=== PATIENT | male | born 1945 | race Caucasian/White ===

== ENCOUNTER 2016-07-22 09:21 | Day surgery (SDC) | payer MEDICARE, BC ==
[~2016-07-22 09:21] MED LIST: Sodium Chloride 0.9% 1,000 ML IV SCH
[2016-07-22] MEDS ORDERED: Sodium Chloride 0.9% 1,000 ML IV SCH (10:30)
[2016-07-22] MEDS ORDERED: ceFAZolin 2 GM in Sodium Chloride 0.9% 50 ML IV ONE (11:30)
[2016-07-22] MEDS ORDERED: Propofol 200 MG/20 ML SDV ONE (11:31)
[2016-07-22] MEDS ORDERED: fentaNYL 100 MCG/2 ML SDV ONE (11:31)
[2016-07-22] MEDS ORDERED: Midazolam 1 MG/ML 2 ML SDV ONE (11:31)
[2016-07-22 12:58] VITALS: BP 116/66
--- NOTE | 2016-07-22 20:54 | OR ---
DATE OF PROCEDURE: 07/22/2016 PROCEDURE: Colonoscopy. FINDINGS: 1. Sigmoid colon polyp, 5 mm, completely removed using cold biopsy forceps. 2. Diverticulosis, mild. COMPLICATIONS: None. MOTION PICTURE NARRATOR: None. ANESTHESIA: MAC. PREOPERATIVE DIAGNOSIS: History of colon polyps. POSTOPERATIVE DIAGNOSIS: History of colon polyps. INDICATIONS: Risks, benefits, alternatives, and limitations including, but not limited to infection, bleeding, and perforation were explained to the patient and he wished to proceed. PROCEDURE IN DETAIL: The patient was placed in the left lateral decubitus position. Digital exam was performed without abnormality. The scope was introduced and advanced atraumatically to the ileocecal valve. The scope was brought back to the ascending, transverse, descending colon, and retroflexed. No evidence of old or new blood. The small polyp was identified and completely removed as described above. The diverticulosis would be described as very mild and limited in sigmoid colon. No abnormalities noted on retroflexion. The patient tolerated the procedure well. Joni Casas MD /[id number]
== END 2016-07-22 13:05 | disposition home or self-care (01) ==
LOC: JP.SDS 09:21
PROVIDERS: ATTEND Surgery
DX: Z12.11 Encounter for screening for malignant neoplasm of colon (principal); K63.5 Polyp of colon; K57.30 Diverticulosis of large intestine without perforation or abscess without bleeding; Z88.8 Allergy status to other drugs, medicaments and biological substances; J44.9 Chronic obstructive pulmonary disease, unspecified; Z95.1 Presence of aortocoronary bypass graft; E78.5 Hyperlipidemia, unspecified
CPT/HCPCS: 45380; 88305; J0690; J2250; J2704; J3010; J7040; J7050

== ENCOUNTER 2016-09-29 18:17 | Observation (INO) | payer MEDICARE, BC ==
[2016-09-29] MEDS ORDERED: Diltiazem 25 MG/5 ML SDV IVPUSH ONE ×2 (18:42→20:12)
[2016-09-29] MEDS ORDERED: Sodium Chloride 0.9% 1,000 ML IV SCH ×3 (18:45→22:24)
[2016-09-29] MEDS ORDERED: Diltiazem 100 MG in Sodium Chloride 0.9% 100 ML IV SCH (21:15)
--- NOTE | 2016-09-29 21:22 | EDM.PDOC ---
ED HPI GENERAL MEDICAL PROBLEM - General Chief Complaint: Cardiovascular Problem Stated Complaint: CHEST PRESSURE Time Seen by Provider: 09/29/16 18:35 Source of Information: Reports: Patient History Limitations: Reports: No Limitations - History of Present Illness INITIAL COMMENTS - FREE TEXT/NARRATIVE: History of present illness: [71-year-old male presenting with A. fib with rapid response that started about 3:00 this afternoon. He has a history of same. He is on warfarin. He usually just waits it home and waits it out and it was clear up in a few hours but this time it's persisted so he came in. He has a history of a cardiac bypass 12 years ago but has not seen a forensic nurse since. He is on oral diltiazem at home. He's having no chest pain or pressure with this lightheadedness or dizziness and otherwise feels fine. He's had no fevers or chills or sweats cough or cold symptoms of late no abdominal pain nausea vomiting constipation diarrhea dysuria] Review of systems: As per history of present illness and below otherwise all systems reviewed and negative. Past medical history: As per history of present illness and as reviewed below otherwise noncontributory. Surgical history: As per history of present illness and as reviewed below otherwise noncontributory. Social history: No reported history of drug or alcohol abuse. Family history: As per history of present illness and as reviewed below otherwise noncontributory. Physical exam: HEENT: Atraumatic, normocephalic, pupils reactive, negative for conjunctival pallor or scleral icterus, mucous membranes moist, throat clear, neck supple, nontender, trachea midline. Lungs: Clear to auscultation, breath sounds equal bilaterally, chest nontender. Heart: Irregular rate and rhythm without murmur Abdomen: Soft, nondistended, nontender. Negative for masses or hepatosplenomegaly. Negative for costovertebral tenderness. Pelvis: Stable nontender. Genitourinary: Deferred. Rectal: Deferred. Extremities: Atraumatic, negative for cords or calf pain. Neurovascular unremarkable. Neuro: Awake, alert, oriented. Cranial nerves II through XII unremarkable. Cerebellum unremarkable. Motor and sensory unremarkable throughout. Exam nonfocal. Diagnostics: [CBC and complete metabolic panel are unremarkable as INR is therapeutic] Therapeutics: [Diltiazem IV was given 10 mg his blood pressure dropped to 77 systolic. He's been here for 3 hours and we have been waiting to see if he would convert and I we have elected to admit him on an IV diltiazem drip] Impression: [A. fib with rapid response] Plan: [We'll be admitting him to the unit on a diltiazem drip Dr. Crandall is being contacted] Definitive disposition and diagnosis as appropriate pending reevaluation and review of above. - Related Data Allergies Allergy/AdvReac Type Severity Reaction Status Date / Time atorvastatin calcium Allergy Cannot Verified 03/10/15 00:47 [From Lipitor] Remember Home Meds: Home Meds Aspirin/Calcium Carbonate/Mag [Aspirin Buffered 325 mg Tab] 81 mg PO DAILY 05/02 [History] Budesonide/Formoterol [Symbicort 160-4.5 MCG] 2 puff INH BID 05/02/13 [History] Diclofenac Sodium [Voltaren] 75 mg PO DAILY 05/02/13 [History] [place]-3 Fatty Acids [[place]-3] 1,000 mg PO BID 05/02/13 [History] Simvastatin [Zocor] 40 mg PO BEDTIME 05/02/13 [History] Loratadine [Claritin] 10 mg PO DAILY 11/04/14 [History] Cholecalciferol (Vitamin D3) [Vitamin D3] 2,000 unit PO DAILY 03/10/15 [History] Acetaminophen [Acetaminophen Extra Strength] 1 - 2 tab PO Q6HR PRN 07/20/16 [ History] Warfarin Sodium [Coumadin] 7.5 mg PO ASDIRECTED 07/22/16 [History] Diltiazem HCl [Diltiazem ER] 1 tab PO DAILY 09/29/16 [History] Past Medical History HEENT History: Reports: Impaired Vision, Other (See Below) 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 Cardiovascular History: Reports: High Cholesterol, [place] Respiratory History: Reports: COPD Other Respiratory History: restrictive lung disease Gastrointestinal History: Reports: Colon Polyp Musculoskeletal History: Reports: Fracture, Osteoarthritis Other Musculoskeletal History: Fx pelvis Neurological History: Reports: Other (See Below) Other Neuro History: "stroke in eye" Oncologic (Cancer) History: Reports: Squamous Cell Carcinoma Dermatologic History: Reports: Benign Melanoma - Infectious Disease History Infectious Disease History: Reports: Chicken Pox, Measles, Mumps - Past Surgical History HEENT Surgical History: Reports: Oral Surgery, Other (See Below) Cardiovascular Surgical History: Reports: Carotid Endarterectomy, Coronary Artery Bypass Respiratory Surgical History: Reports: None GI Surgical History: Reports: Colonoscopy Musculoskeletal Surgical History: Reports: Joint Replacement, Knee Replacement Social & Family History - Tobacco Use Smoking Status *Q: Former Smoker Years of Tobacco use: 30 Packs/Tins Daily: 1 Used Tobacco, but Quit: Yes Month Tobacco Last Used: FEBRUARY Second Hand Smoke Exposure: No - Caffeine Use Caffeine Use: Reports: Coffee - Alcohol Use Days Per Week of Alcohol Use: 7 Number of Drinks Per Day: 1 Total Drinks Per Week: 7 - Recreational Drug Use Recreational Drug Use: No ED ROS GENERAL - Review of Systems Review Of Systems: ROS reveals no pertinent complaints other than HPI. ED EXAM, GENERAL - Physical Exam Exam: See Below Course - Vital Signs Last Recorded V/S: Last Vital Signs Temp 36.3 C 09/29/16 18:57 Pulse 140 H 09/29/16 20:25 Resp 16 09/29/16 18:58 BP 88/59 L 09/29/16 20:25 Pulse Ox 92 L 09/29/16 20:25 - Orders/Labs/Meds Orders: Active Orders 24 hr Category Date Time Status EKG Documentation Completion [RC] ASDIRECTED Care 09/29/16 19:33 Active Chest 1V Frontal [CR] Stat Exams 09/29/16 19:39 Taken TROPONIN I [CHEM] Stat Lab 09/29/16 21:22 Ordered Diltiazem [Cardizem] 100 mg Med 09/29/16 21:15 Active Sodium Chloride 0.9% [Normal Saline] 100 ml IV TITRATE Sodium Chloride 0.9% [Normal Saline] 1,000 ml Med 09/29/16 20:00 Active IV ASDIRECTED EKG 12 Lead [EK] Stat Ther 09/29/16 19:33 Ordered Medication Orders Sodium Chloride (Normal Saline) 1,000 mls @ 999 mls/hr IV ASDIRECTED TONY Diltiazem HCl 100 mg/ Sodium (Chloride) 100 mls @ 5 mls/hr IV TITRATE TONY; 5 MG /HR PRN Reason: Protocol Labs: Laboratory Tests 09/29/16 09/29/16 09/29/16 Range/Units 18:53 18:53 18:53 WBC 8.3 (4.5-11.0) K/uL RBC 4.62 (4.30-5.90) M/uL Hgb 14.9 (12.0-15.0) g/dL Hct 44.0 (40.0-54.0) % MCV 95 (80-98) fL MCH 32 H (27-31) pg MCHC 34 (32-36) % Plt Count 238 (150-400) K/uL Neut % (Auto) 55 (36-66) % Lymph % (Auto) 30 (24-44) % [place] % (Auto) 11 H (2-6) % Eos % (Auto) 3 (2-4) % Baso % (Auto) 1 (0-1) % PT 27.1 H (9.5-12.0) sec INR 2.44 H (0.80-1.20) Sodium 141 (140-148) mmol/L Potassium 4.7 (3.6-5.2) mmol/L Chloride 104 (100-108) mmol/L Carbon Dioxide 30 (21-32) mmol/L Anion Gap 7.5 (5.0-14.0) mmol/L BUN 18 (7-18) mg/dL Creatinine 1.2 (0.8-1.3) mg/dL Est Cr Clr Drug Dosing 59.26 mL/min Estimated GFR (MDRD) 60 (>60) Glucose 96 (74-106) mg/dL Calcium 8.7 (8.5-10.1) mg/dL Total Bilirubin 0.4 (0.2-1.0) mg/dL AST 20 (15-37) U/L ALT 29 (12-78) U/L Alkaline Phosphatase 62 (46-116) U/L Total Protein 6.7 (6.4-8.2) g/dL Albumin 3.3 L (3.4-5.0) g/dL Globulin 3.4 (2.3-3.5) g/dL Albumin/Globulin Ratio 1.0 L (1.2-2.2) Meds: Medications Generic Name Dose Route Start Last Admin Trade Name Freq PRN Reason Stop Dose Admin Sodium Chloride 1,000 mls @ 999 mls/hr 09/29/16 20:00 Normal Saline IV ASDIRECTED TONY Diltiazem HCl 100 mg/ Sodium 100 mls @ 5 mls/hr 09/29/16 21:15 Chloride IV TITRATE TONY Protocol 5 MG/HR Discontinued Medications Generic Name Dose Route Start Last Admin Trade Name Steph PRN Reason Stop Dose Admin Diltiazem HCl 10 mg 09/29/16 18:42 09/29/16 19:01 Diltiazem IVPUSH 09/29/16 18:43 10 mg ONETIME ONE Administration Diltiazem HCl 10 mg 09/29/16 20:12 Diltiazem IVPUSH 09/29/16 20:13 ONETIME ONE Sodium Chloride 1,000 mls @ 250 mls/hr 09/29/16 18:45 09/29/16 19:03 Normal Saline IV 250 mls/hr ASDIRECTED TONY Administration Departure - Departure Time of Disposition: 21:25 Disposition: Admitted As Inpatient 65 Condition: Good Clinical Impression: Atrial fibrillation with rapid ventricular response Forms: ED Department Discharge - My Orders Last 24 Hours: My Active Orders 09/29/16 19:33 EKG Documentation Completion [RC] ASDIRECTED EKG 12 Lead [EK] Stat 09/29/16 19:39 Chest 1V Frontal [CR] Stat 09/29/16 20:00 Sodium Chloride 0.9% [Normal Saline] 1,000 ml IV ASDIRECTED 09/29/16 21:15 Diltiazem [Cardizem] 100 mg Sodium Chloride 0.9% [Normal Saline] 100 ml IV TITRATE 09/29/16 21:22 TROPONIN I [CHEM] Stat - Assessment/Plan Last 24 Hours: My Active Orders 09/29/16 19:33 EKG Documentation Completion [RC] ASDIRECTED EKG 12 Lead [EK] Stat 09/29/16 19:39 Chest 1V Frontal [CR] Stat 09/29/16 20:00 Sodium Chloride 0.9% [Normal Saline] 1,000 ml IV ASDIRECTED 09/29/16 21:15 Diltiazem [Cardizem] 100 mg Sodium Chloride 0.9% [Normal Saline] 100 ml IV TITRATE 09/29/16 21:22 TROPONIN I [CHEM] Stat
--- NOTE | 2016-09-29 22:20 | PCM.HP ---
H&P History of Present Illness - General Date of Service: 09/29/16 Admit Problem/Dx: Admission Diagnosis/Problem Admission Diagnosis/Problem Rapid atrial fibrillation Source of Information: Patient, Family, Provider History Limitations: Reports: No Limitations - History of Present Illness Initial Comments - Free Text/Narative: Atif presents to the emergency room tonight with palpitations that started at approximately 3 PM today. He reports mild fatigue with exertion but has not had any chest pain or shortness of breath. He does not feel dyspnea with exertion. No dizziness or lightheadedness. He has not had a cough, fevers or chills. No recent abdominal pain, nausea or diarrhea. No lower extremity edema. He has felt well recently with no concerns. He does have a history of similar episodes with 2 or 3 over the past 2 years. They have previously responded to time more in one instance short duration of medication administration. Has been on warfarin and recent values have all been therapeutic. No recent tremor or weight loss to suggest hyperthyroid state. No unusual activities prior to onset of symptoms this afternoon. He drinks 2 cups of coffee per day at most and this is a chronic level of consumption. No alcohol or street drug use. On arrival to the emergency room he has a heart rate of 140-150 range. Vital signs are otherwise stable. Laboratory studies are reassuring. Diltiazem bolus caused some hypotension. Diltiazem infusion started after blood pressures improved. He will be admitted for further management and possible cardioversion. - Related Data Allergies/Adverse Reactions: Allergies Allergy/AdvReac Type Severity Reaction Status Date / Time atorvastatin calcium Allergy Cannot Verified 03/10/15 00:47 [From Lipitor] Remember Home Medications: Home Meds Aspirin/Calcium Carbonate/Mag [Aspirin Buffered 325 mg Tab] 81 mg PO DAILY 05/02 [History] Budesonide/Formoterol [Symbicort 160-4.5 MCG] 2 puff INH BID 05/02/13 [History] Diclofenac Sodium [Voltaren] 75 mg PO DAILY 05/02/13 [History] [place]-3 Fatty Acids [[place]-3] 1,000 mg PO BID 05/02/13 [History] Simvastatin [Zocor] 40 mg PO BEDTIME 05/02/13 [History] Loratadine [Claritin] 10 mg PO DAILY 11/04/14 [History] Cholecalciferol (Vitamin D3) [Vitamin D3] 2,000 unit PO DAILY 03/10/15 [History] Acetaminophen [Acetaminophen Extra Strength] 1 - 2 tab PO Q6HR PRN 07/20/16 [ History] Warfarin Sodium [Coumadin] 7.5 mg PO ASDIRECTED 07/22/16 [History] Diltiazem HCl [Diltiazem ER] 120 mg PO DAILY 09/29/16 [History] Past Medical History HEENT History: Reports: Impaired Vision, Other (See Below) 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 Cardiovascular History: Reports: High Cholesterol, [place] Respiratory History: Reports: COPD Other Respiratory History: restrictive lung disease Gastrointestinal History: Reports: Colon Polyp Musculoskeletal History: Reports: Fracture, Osteoarthritis Other Musculoskeletal History: Fx pelvis Neurological History: Reports: Other (See Below) Other Neuro History: "stroke in eye" Oncologic (Cancer) History: Reports: Squamous Cell Carcinoma Dermatologic History: Reports: Benign Melanoma - Infectious Disease History Infectious Disease History: Reports: Chicken Pox, Measles, Mumps - Past Surgical History HEENT Surgical History: Reports: Oral Surgery, Other (See Below) Cardiovascular Surgical History: Reports: Carotid Endarterectomy, Coronary Artery Bypass Respiratory Surgical History: Reports: None GI Surgical History: Reports: Colonoscopy Musculoskeletal Surgical History: Reports: Joint Replacement, Knee Replacement Social & Family History - Family History Cardiac: Denies: CAD - Tobacco Use Smoking Status *Q: Former Smoker Years of Tobacco use: 30 Packs/Tins Daily: 1 Used Tobacco, but Quit: Yes Month Tobacco Last Used: FEBRUARY Second Hand Smoke Exposure: No - Caffeine Use Caffeine Use: Reports: Coffee - Alcohol Use Days Per Week of Alcohol Use: 7 Number of Drinks Per Day: 1 Total Drinks Per Week: 7 - Recreational Drug Use Recreational Drug Use: No H&P Review of Systems - Review of Systems: Review Of Systems: See Below Free Text/Narrative: A complete 12 point review of systems was obtained. Pertinent positives and negatives are noted in the history of present illness. All other systems were reviewed and were negative except as noted. Exam - Exam Exam: See Below - Vital Signs Vital Signs: Last Vital Signs Temp 36.3 C 09/29/16 18:57 Pulse 130 H 09/29/16 21:42 Resp 16 09/29/16 21:42 BP 122/75 09/29/16 21:42 Pulse Ox 93 L 09/29/16 21:42 Weight: 105.6 kg - Exam Quality Assessment: No: Supplemental Oxygen General: Alert, Oriented, Cooperative. No: Mild Distress HEENT: Conjunctiva Clear, Mucosa Moist & Sharpes. No: Scleral Icterus Neck: Supple, Trachea Midline. No: Lymphadenopathy, JVD Lungs: Clear to Auscultation, Normal Respiratory Effort Cardiovascular: Irregular Rhythm, Tachycardia GI/Abdominal Exam: Normal Bowel Sounds, Soft, Non-Tender, No Distention Back Exam: Normal Inspection, Full Range of Motion Extremities: Normal Inspection, No Pedal Edema. No: Increased Warmth Skin: Warm, Dry, Intact Neuro Extensive - Mental Status: Alert, Oriented x3, Nl Response to Commands Neuro Extensive - Motor, Sensory, Reflexes: CN II-XII Intact. No: Dysarthria, Abnormal Motor, Tremor Psychiatric: Alert, Normal Affect - Patient Data Lab Results Last 24 hrs: Laboratory Results - last 24 hr 09/29/16 09/29/16 09/29/16 Range/Units 18:53 18:53 18:53 WBC 8.3 (4.5-11.0) K/uL RBC 4.62 (4.30-5.90) M/uL Hgb 14.9 (12.0-15.0) g/dL Hct 44.0 (40.0-54.0) % MCV 95 (80-98) fL MCH 32 H (27-31) pg MCHC 34 (32-36) % Plt Count 238 (150-400) K/uL Neut % (Auto) 55 (36-66) % Lymph % (Auto) 30 (24-44) % [place] % (Auto) 11 H (2-6) % Eos % (Auto) 3 (2-4) % Baso % (Auto) 1 (0-1) % PT 27.1 H (9.5-12.0) sec INR 2.44 H (0.80-1.20) Sodium 141 (140-148) mmol/L Potassium 4.7 (3.6-5.2) mmol/L Chloride 104 (100-108) mmol/L Carbon Dioxide 30 (21-32) mmol/L Anion Gap 7.5 (5.0-14.0) mmol/L BUN 18 (7-18) mg/dL Creatinine 1.2 (0.8-1.3) mg/dL Est Cr Clr Drug Dosing 59.26 mL/min Estimated GFR (MDRD) 60 (>60) Glucose 96 (74-106) mg/dL Calcium 8.7 (8.5-10.1) mg/dL Magnesium (1.8-2.4) mg/dL Total Bilirubin 0.4 (0.2-1.0) mg/dL AST 20 (15-37) U/L ALT 29 (12-78) U/L Alkaline Phosphatase 62 (46-116) U/L Troponin I (0.000-0.056) ng/mL Total Protein 6.7 (6.4-8.2) g/dL Albumin 3.3 L (3.4-5.0) g/dL Globulin 3.4 (2.3-3.5) g/dL Albumin/Globulin Ratio 1.0 L (1.2-2.2) 09/29/16 09/29/16 Range/Units 21:30 21:47 WBC (4.5-11.0) K/uL RBC (4.30-5.90) M/uL Hgb (12.0-15.0) g/dL Hct (40.0-54.0) % MCV (80-98) fL MCH (27-31) pg MCHC (32-36) % Plt Count (150-400) K/uL Neut % (Auto) (36-66) % Lymph % (Auto) (24-44) % [place] % (Auto) (2-6) % Eos % (Auto) (2-4) % Baso % (Auto) (0-1) % PT (9.5-12.0) sec INR (0.80-1.20) Sodium (140-148) mmol/L Potassium (3.6-5.2) mmol/L Chloride (100-108) mmol/L Carbon Dioxide (21-32) mmol/L Anion Gap (5.0-14.0) mmol/L BUN (7-18) mg/dL Creatinine (0.8-1.3) mg/dL Est Cr Clr Drug Dosing mL/min Estimated GFR (MDRD) (>60) Glucose (74-106) mg/dL Calcium (8.5-10.1) mg/dL Magnesium 1.9 (1.8-2.4) mg/dL Total Bilirubin (0.2-1.0) mg/dL AST (15-37) U/L ALT (12-78) U/L Alkaline Phosphatase (46-116) U/L Troponin I < 0.017 (0.000-0.056) ng/mL Total Protein (6.4-8.2) g/dL Albumin (3.4-5.0) g/dL Globulin (2.3-3.5) g/dL Albumin/Globulin Ratio (1.2-2.2) Result Diagrams: 09/29/16 18:53 09/29/16 18:53 Imaging Impressions Last 24 hrs: Chest x-ray - images personally reviewed - heart size is normal, no evidence for infiltrate, congestive heart failure or mass. Elevated left hemidiaphragm consistent with hiatal hernia EKG INTERPRETATION EKG Date: 09/29/16 Rhythm: A-Fib Rate (Beats/Min): 144 [place]: Normal P-Wave: Variable QRS: Normal ST-T: Normal QT: Normal *Q Meaningful Use (ADM) - VTE *Q VTE Criteria *Q: - VTE Risk Assess *Q Each Risk Factor Represents 1 Point: Obesity (BMI greater than 30) Total Score 1 Point Risk Factors: 1 Each Risk Factor Represents 2 Points: Age 60 - 74 Years Total Score 2 Point Risk Factors: 2 Each Risk Factor Represents 3 Points: None Total Score 3 Point Risk Factors: 0 Each Risk Factor Represents 5 Points: None Total Score 5 Point Risk Factors: 0 Venous Thromboembolism Risk Factor Score *Q: 3 - Stroke *Q Stroke Criteria *Q: - AMI *Q AMI Criteria *Q: - Problem List (1) Atrial fibrillation with rapid ventricular response SNOMED Code(s): 696168749346577 ICD Code: I48.91 - UNSPECIFIED ATRIAL FIBRILLATION Status: Acute Current Visit: Yes Problem List Initiated/Reviewed/Updated: Yes Orders Last 24hrs: Active Orders 24 hr Category Date Time Status Patient Status Manage Transfer [TRANSFER] Routine ADT 09/29/16 22:10 Ordered EKG Documentation Completion [RC] ASDIRECTED Care 09/29/16 19:33 Active Chest 1V Frontal [CR] Stat Exams 09/29/16 19:39 Taken Diltiazem [Cardizem] 100 mg Med 09/29/16 21:15 Active Sodium Chloride 0.9% [Normal Saline] 100 ml IV TITRATE Sodium Chloride 0.9% [Normal Saline] 1,000 ml Med 09/29/16 20:00 Active IV ASDIRECTED Resuscitation Status Routine Resus Stat 09/29/16 22:11 Ordered EKG 12 Lead [EK] Stat Ther 09/29/16 19:33 Ordered Medication Orders Sodium Chloride (Normal Saline) 1,000 mls @ 999 mls/hr IV ASDIRECTED TONY Last Admin: 09/29/16 21:38 Dose: 999 mls/hr Diltiazem HCl 100 mg/ Sodium (Chloride) 100 mls @ 5 mls/hr IV TITRATE TONY; 5 MG /HR PRN Reason: Protocol Last Admin: 09/29/16 21:40 Dose: 5 mg/hr, 5 mls/hr Assessment/Plan Comment:: Assessment and plan - Atrial fibrillation with rapid ventricular response - no obvious cause for the rapid rate today. No evidence for infection. No symptoms of sleep apnea or hyperthyroidism. Minimal caffeine use and no alcohol or illicit drug use. No ischemic symptoms. Laboratory studies unremarkable including electrolytes. History of similar episodes. INR has been therapeutic on recent checks. -Diltiazem infusion overnight -Consider addition of beta alina -As her cardioversion in the morning still in atrial fibrillation -Continue anticoagulation -Outpatient echocardiogram -Outpatient cardiology referral Maintenance issues - - DVT prophylaxis - warfarin - GI prophylaxis - not indicated - Nutrition - nothing by mouth after midnight in case we cardiovert in the morning - Phan catheter - not indicated CODE STATUS - full code Admission justification - patient will be referred observation for management of atrial fibrillation including diltiazem infusion and possibly cardioversion Disposition - anticipate discharge to home tomorrow Primary care physician - Dr. Rodrigo Crandall M.D.
[2016-09-29] MEDS ORDERED: Acetaminophen 325 MG Tab PO PRN (22:24)
[2016-09-29] MEDS ORDERED: Ondansetron 4 MG Tab.DIS PO PRN (22:24)
[2016-09-29] MEDS: Diltiazem 100 MG in Sodium Chloride 0.9% 100 ML IV SCH (22:32)
[2016-09-30] MEDS ORDERED: Diltiazem 25 MG/5 ML SDV IVPUSH ONE (00:27)
[2016-09-30] MEDS: Diltiazem 100 MG in Sodium Chloride 0.9% 100 ML IV SCH (07:07)
[2016-09-30] MEDS ORDERED: Formoterol/Mometasone 200-5 MCG 8.8 GM Inhaler IH SCH ×2 (08:00→09:00)
[2016-09-30] MEDS ORDERED: Diltiazem 120 MG Cap.CD (PTOM) PO ONE (08:30)
[2016-09-30] MEDS ORDERED: Non-Formulary Medication 1 Each (Aspirin/Calcium Carbonate/Mag [Aspirin Buffered 325 Mg Ta PO SCH ×2 (09:00)
[2016-09-30] MEDS ORDERED: DICLOFENAC SODIUM 75 MG PO SCH (09:00)
[2016-09-30] MEDS ORDERED: Aspirin 81 MG Tab.EC PO SCH (09:00)
[2016-09-30] MEDS ORDERED: SYMBICORT INH SCH (09:00)
[2016-09-30] MEDS ORDERED: LORATADINE 10 MG PO SCH (09:00)
--- NOTE | 2016-09-30 09:02 | CR ---
Chest 1V Frontal HISTORY: Atrial fibrillation COMPARISON: 03/10/2015. FINDINGS: Prior median sternotomy. Stable mild cardiomegaly. Linear atelectatic change or scarring a djacent to the elevated left hemidiaphragm unchanged from previous study. No new acute infiltrates. No acute congestive change.
[2016-09-30 12:25] VITALS: BP 130/68
--- NOTE | 2016-09-30 12:52 | PCM.DCSUM1 ---
Discharge Summary - Hospital Course Brief History: 71 -year-old male with history of paroxysmal atrial fibrillation on warfarin therapy who presented with palpitations and was admitted for management of atrial fibrillation with rapid ventricular response. - Discharge Data Discharge Date: 09/30/16 Discharge Disposition: Home, Self-Care 01 Condition: Good - Discharge Diagnosis/Problem(s) (1) Atrial fibrillation with rapid ventricular response SNOMED Code(s): 636960572516644 ICD Code: I48.91 - UNSPECIFIED ATRIAL FIBRILLATION Status: Acute Current Visit: Yes Problem Details: Paroxysmal atrial fibrillation with rapid ventricular response - Patient Summary/Data Labs Pending at D/C: formal read of the echocardiogram Hospital Course: Atif presented to the emergency room with palpitations. Workup in the emergency room revealed atrial fibrillation with rapid ventricular response and heart rates up to 150s. Laboratory workup was unremarkable including kidney function, electrolytes and his troponin was normal. EKG did not show any ischemic changes. He was given a bolus of diltiazem in the emergency room which did not help his rate much and did drop his pressures. At this point he was started on a diltiazem infusion and this was titrated up to 10 mg shortly after admission to the intensive care unit. Overnight his heart rate improved and we did not need to go past 10 mg. Morning after admission he converted to a normal sinus rhythm and has remained there since that time. Blood pressures have all been stable on the 10 mg per hour infusion. The morning after admission we transitioned him to oral diltiazem after he converted to sinus rhythm. The diltiazem infusion was then stopped and he has remained in sinus rhythm with a normal heart rate since that time. we did complete an echocardiogram prior to discharge. The formal read is pending but from the images are viewed appears that he has some mild atrial enlargement but normal left ventricular size and function. Right ventricle is nondilated and functioned normally. He may have some mild septal hypokinesis but the remainder of the wall motion seems normal. He had trace mitral regurgitation but otherwise is felt to be functioning normally and no significant stenosis or regurgitation. There is no pericardial effusion noted. Patient has had several episodes of atrial fibrillation and he is interested in a follow-up with cardiology discussion about risks and benefits and possibility of having an ablation. His coronary artery bypass was done at [facility] in [place] 12 years ago when he is interested in following up with the cardiology folks at [facility]. A follow-up appointment has been set up for him in [place] next week. I have discharged him with a prescription for 240 mg of diltiazem to be taken daily which is an increase from his previous dose of 120 mg. He will remain on warfarin and his INR has been therapeutic during recent checks and during the hospital stay. - Patient Instructions Diet: Heart Healthy Diet Activity: As Tolerated Driving: May Drive Today Showering/Bathing: May Shower Notify Provider of: Fever, Increased Pain, Nausea and/or Vomiting Other/Special Instructions: 1. You were in the hospital for management of paroxysmal atrial fibrillation with rapid ventricular response. Your heart has returned to a normal sinus rhythm with the use of diltiazem. I recommend that you increase your diltiazem to 240 mg and take this once daily. 2. Please continue taking your warfarin as previously prescribed. 3. Follow-up with [place] cardiology next at 10 AM. 4. Please seek medical attention if you have return of the palpitations, he developed sudden onset of shortness of breath or you develop chest pain. - Discharge Plan Prescriptions/Med Rec: Diltiazem HCl [Diltiazem 24Hr Cd] 240 mg PO DAILY #90 cap.er.24h Home Medications: Home Meds Aspirin/Calcium Carbonate/Mag [Aspirin Buffered 325 mg Tab] 81 mg PO DAILY 05/02 [History] Budesonide/Formoterol [Symbicort 160-4.5 MCG] 2 puff INH BID 05/02/13 [History] Diclofenac Sodium [Voltaren] 75 mg PO DAILY 05/02/13 [History] [place]-3 Fatty Acids [[place]-3] 1,000 mg PO BID 05/02/13 [History] Simvastatin [Zocor] 40 mg PO BEDTIME 05/02/13 [History] Loratadine [Claritin] 10 mg PO DAILY 11/04/14 [History] Cholecalciferol (Vitamin D3) [Vitamin D3] 2,000 unit PO DAILY 03/10/15 [History] Acetaminophen [Acetaminophen Extra Strength] 1 - 2 tab PO Q6HR PRN 07/20/16 [ History] Warfarin Sodium [Coumadin] 7.5 mg PO ASDIRECTED 07/22/16 [History] Diltiazem HCl [Diltiazem 24Hr Cd] 240 mg PO DAILY #90 cap.er.24h 09/30/16 [Rx] Patient Handouts: Diltiazem extended-release capsules or tablets, Atrial Fibrillation Referrals: Germán Wallace MD [Primary Care Provider] - (f/u if symptoms return ) - Discharge Summary/Plan Comment DC Time >30 min.: No (25) - Patient Data Vitals - Most Recent: Last Vital Signs Temp 36.8 C 09/30/16 12:00 Pulse 81 09/30/16 12:00 Resp 18 09/30/16 12:00 BP 130/68 09/30/16 12:00 Pulse Ox 94 L 09/30/16 07:52 Weight - Most Recent: 107.501 kg I&O - Last 24 hours: Intake & Output 09/29/16 09/30/16 09/30/16 22:59 06:59 14:59 Intake Total 9544 165 3692 Output Total 400 350 Balance 1000 -280 1536 Med Orders - Current: Current Medications Acetaminophen (Tylenol) 650 mg PO Q4H PRN PRN Reason: Pain (Mild 1-3)/fever Aspirin (Halfprin) 81 mg PO DAILY [facility] Last Admin: 09/30/16 08:49 Dose: 81 mg Diclofenac Sodium (Voltaren) 75 mg PO DAILY [facility] Last Admin: 09/30/16 08:50 Dose: 75 mg Sodium Chloride (Normal Saline) 1,000 mls @ 25 mls/hr IV ASDIRECTED [facility] Last Admin: 09/30/16 01:02 Dose: 25 mls/hr Loratadine (Claritin) 10 mg PO DAILY [facility] Last Admin: 09/30/16 08:48 Dose: 10 mg Ondansetron HCl (Zofran Odt) 4 mg PO Q6H PRN PRN Reason: Nausea able to take PO Simvastatin 40mg ( (Ptom)) 0 each PO BEDTIME TONY Symbicort 160/4.5mg (Inhaler (Ptom)) 0 each INH BIDRT [facility] Last Admin: 09/30/16 09:43 Dose: 2 each Discontinued Medications Diltiazem HCl (Diltiazem) 10 mg IVPUSH ONETIME ONE Stop: 09/29/16 18:43 Last Admin: 09/29/16 19:01 Dose: 10 mg Diltiazem HCl (Diltiazem) 10 mg IVPUSH ONETIME ONE Stop: 09/29/16 20:13 Last Admin: 09/30/16 06:02 Dose: Not Given Diltiazem HCl (Diltiazem) 5 mg IVPUSH ONETIME ONE Stop: 09/30/16 00:28 Last Admin: 09/30/16 06:03 Dose: Not Given Diltiazem HCl (Cardizem Cd) 240 mg PO ONETIME ONE Stop: 09/30/16 08:31 Last Admin: 09/30/16 08:47 Dose: 240 mg Sodium Chloride (Normal Saline) 1,000 mls @ 250 mls/hr IV ASDIRECTED TONY Last Admin: 09/29/16 19:03 Dose: 250 mls/hr Sodium Chloride (Normal Saline) 1,000 mls @ 999 mls/hr IV ASDIRECTED TONY Last Admin: 09/29/16 21:38 Dose: 999 mls/hr Diltiazem HCl 100 mg/ Sodium (Chloride) 100 mls @ 5 mls/hr IV TITRATE TONY; 5 MG /HR PRN Reason: Protocol Last Admin: 09/29/16 21:40 Dose: 5 mg/hr, 5 mls/hr Diltiazem HCl 100 mg/ Sodium (Chloride) 100 mls @ 5 mls/hr IV TITRATE TONY; 5 MG /HR PRN Reason: Protocol Last Admin: 09/30/16 07:07 Dose: 10 mg/hr, 10 mls/hr Simvastatin (Zocor) 40 mg PO BEDTIME TONY *Q Meaningful Use (DIS) - VTE *Q VTE Criteria *Q: - Stroke *Q Stroke Criteria *Q: - AMI *Q AMI Criteria *Q:
[2016-09-30] MEDS ORDERED: SIMVASTATIN 40 MG PO SCH (21:00)
[2016-09-30] MEDS ORDERED: Simvastatin 20 MG Tab PO SCH (21:00)
== END 2016-09-30 14:50 | disposition home or self-care (01) ==
LOC: JP.ED 18:17 → JP.ICU 22:10 → UNDODISOB 23:20
PROVIDERS: ADMIT Internal Medicine; ATTEND Internal Medicine
DX: I48.91 Unspecified atrial fibrillation (principal); E78.00 Pure hypercholesterolemia, unspecified; J44.9 Chronic obstructive pulmonary disease, unspecified; Z79.82 Long term (current) use of aspirin; Z79.01 Long term (current) use of anticoagulants; Z79.899 Other long term (current) drug therapy; Z88.8 Allergy status to other drugs, medicaments and biological substances; Z95.1 Presence of aortocoronary bypass graft; Z98.890 Other specified postprocedural states; Z96.659 Presence of unspecified artificial knee joint; Z87.891 Personal history of nicotine dependence
CPT/HCPCS: 36415; 71010; 80053; 83735; 84484; 85025; 85610; 93005; 93306; 96361; 96366; 96374; 99285; A9270; G0378; J7030; J7040; 93010; 96365; 96375; 99217; 99220; J3490

== ENCOUNTER 2016-11-11 19:07 | Emergency (ER) | payer MEDICARE, BC ==
[2016-11-11] MEDS ORDERED: LORazepam 0.5 MG Tab PO ONE (20:44)
--- NOTE | 2016-11-11 20:46 | EDM.PDOC ---
ED HPI GENERAL MEDICAL PROBLEM - General Chief Complaint: Cardiovascular Problem Stated Complaint: BLOOD PRESSURE HIGH Time Seen by Provider: 11/11/16 20:36 Source of Information: Reports: Patient, Family, RN Notes Reviewed History Limitations: Reports: No Limitations - History of Present Illness INITIAL COMMENTS - FREE TEXT/NARRATIVE: 71-year-old gentleman presents emergency department day with concerns about blood pressure, he does have a wrist blood pressure machine each has shown systolic levels well above 200 he is very concerned about this and would like to be evaluated, he complains of slight headache otherwise no other symptoms - Related Data Allergies Allergy/AdvReac Type Severity Reaction Status Date / Time atorvastatin calcium Allergy Cannot Verified 11/11/16 19:51 [From Lipitor] Remember Home Meds: Home Meds Aspirin/Calcium Carbonate/Mag [Aspirin Buffered 325 mg Tab] 81 mg PO DAILY 05/02 [History] Budesonide/Formoterol [Symbicort 160-4.5 MCG] 2 puff INH BID 05/02/13 [History] Diclofenac Sodium [Voltaren] 75 mg PO DAILY 05/02/13 [History] [place]-3 Fatty Acids [[place]-3] 1,000 mg PO BID 05/02/13 [History] Simvastatin [Zocor] 40 mg PO BEDTIME 05/02/13 [History] Loratadine [Claritin] 10 mg PO DAILY 11/04/14 [History] Cholecalciferol (Vitamin D3) [Vitamin D3] 2,000 unit PO DAILY 03/10/15 [History] Acetaminophen [Acetaminophen Extra Strength] 1 - 2 tab PO Q6HR PRN 07/20/16 [ History] Warfarin Sodium [Coumadin] 7.5 mg PO ASDIRECTED 07/22/16 [History] Diltiazem HCl [Diltiazem 24Hr Cd] 240 mg PO DAILY #90 cap.er.24h 09/30/16 [Rx] Past Medical History HEENT History: Reports: Impaired Vision, Other (See Below) 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 Cardiovascular History: Reports: CAD, High Cholesterol, [place] Respiratory History: Reports: COPD Other Respiratory History: restrictive lung disease Gastrointestinal History: Reports: Colon Polyp Musculoskeletal History: Reports: Fracture, Osteoarthritis Other Musculoskeletal History: Fx pelvis Neurological History: Reports: Other (See Below) Other Neuro History: "stroke in eye" Oncologic (Cancer) History: Reports: Squamous Cell Carcinoma Dermatologic History: Reports: Benign Melanoma - Infectious Disease History Infectious Disease History: Reports: Chicken Pox, Measles, Mumps - Past Surgical History HEENT Surgical History: Reports: Oral Surgery, Other (See Below) Cardiovascular Surgical History: Reports: Carotid Endarterectomy, Coronary Artery Bypass GI Surgical History: Reports: Colonoscopy Musculoskeletal Surgical History: Reports: Joint Replacement, Knee Replacement Social & Family History - Family History Family Medical History: Noncontributory - Tobacco Use Smoking Status *Q: Unknown Ever Smoked Years of Tobacco use: 30 Packs/Tins Daily: 1 Used Tobacco, but Quit: Yes Month Tobacco Last Used: FEBRUARY Second Hand Smoke Exposure: No - Caffeine Use Caffeine Use: Reports: Coffee - Alcohol Use Days Per Week of Alcohol Use: 7 Number of Drinks Per Day: 1 Total Drinks Per Week: 7 - Recreational Drug Use Recreational Drug Use: No ED ROS GENERAL - Review of Systems Review Of Systems: See Below Constitutional: Reports: No Symptoms HEENT: Reports: No Symptoms Respiratory: Reports: No Symptoms Cardiovascular: Reports: No Symptoms GI/Abdominal: Reports: No Symptoms : Reports: No Symptoms Musculoskeletal: Reports: No Symptoms Skin: Reports: No Symptoms Neurological: Reports: Headache ED EXAM, GENERAL - Physical Exam Exam: See Below Exam Limited By: No Limitations General Appearance: Alert, WD/WN, No Apparent Distress Eye Exam: Bilateral Eye: Normal Inspection Neck: Normal Inspection, Supple, Non-Tender, Full Range of Motion Respiratory/Chest: No Respiratory Distress, Lungs Clear, Normal Breath Sounds, No Accessory Muscle Use Cardiovascular: Regular Rate, Rhythm, No Murmur GI/Abdominal: Soft, Non-Tender Course - Vital Signs Last Recorded V/S: Last Vital Signs Temp 98.8 F 11/11/16 19:51 Pulse 62 11/11/16 22:07 Resp 16 11/11/16 19:51 BP 166/96 H 11/11/16 22:20 Pulse Ox 91 L 11/11/16 22:07 - Orders/Labs/Meds Orders: Active Orders 24 hr Category Date Time Status Cardiac Monitoring [RC] .As Directed Care 11/11/16 20:42 Active EKG Documentation Completion [RC] ASDIRECTED Care 11/11/16 20:44 Active EKG 12 Lead [EK] Stat Ther 11/11/16 20:44 Ordered Labs: Laboratory Tests 11/11/16 11/11/16 11/11/16 Range/Units 20:52 20:52 20:52 WBC 8.4 (4.5-11.0) K/uL RBC 4.64 (4.30-5.90) M/uL Hgb 14.8 (12.0-15.0) g/dL Hct 43.9 (40.0-54.0) % MCV 95 (80-98) fL MCH 32 H (27-31) pg MCHC 34 (32-36) % Plt Count 239 (150-400) K/uL Neut % (Auto) 58 (36-66) % Lymph % (Auto) 27 (24-44) % [place] % (Auto) 11 H (2-6) % Eos % (Auto) 2 (2-4) % Baso % (Auto) 1 (0-1) % PT 25.4 H (9.5-12.0) sec INR 2.29 H (0.80-1.20) Sodium 141 (140-148) mmol/L Potassium 4.5 (3.6-5.2) mmol/L Chloride 105 (100-108) mmol/L Carbon Dioxide 30 (21-32) mmol/L Anion Gap 5.8 (5.0-14.0) mmol/L BUN 17 (7-18) mg/dL Creatinine 1.1 (0.8-1.3) mg/dL Est Cr Clr Drug Dosing 64.65 mL/min Estimated GFR (MDRD) > 60 (>60) Glucose 103 (74-106) mg/dL Calcium 8.9 (8.5-10.1) mg/dL Total Bilirubin 0.4 (0.2-1.0) mg/dL AST 19 (15-37) U/L ALT 32 (12-78) U/L Alkaline Phosphatase 74 (46-116) U/L CK-MB (CK-2) 4.2 H (0-3.6) mg/mL Troponin I < 0.017 (0.000-0.056) ng/mL Total Protein 7.4 (6.4-8.2) g/dL Albumin 3.6 (3.4-5.0) g/dL Globulin 3.8 H (2.3-3.5) g/dL Albumin/Globulin Ratio 1.0 L (1.2-2.2) Meds: Medications Discontinued Medications Generic Name Dose Route Start Last Admin Trade Name Steph PRKale Reason Stop Dose Admin Lisinopril 10 mg 11/11/16 22:05 11/11/16 22:20 Prinivil PO 11/11/16 22:06 10 mg ONETIME ONE Administration Lorazepam 0.5 mg 11/11/16 20:44 11/11/16 21:12 Ativan PO 11/11/16 20:45 0.5 mg ONETIME ONE Administration Departure - Departure Time of Disposition: 23:09 Disposition: Home, Self-Care 01 Condition: Good Clinical Impression: Hypertensive urgency Referrals: Germán Wallace MD [Primary Care Provider] - Forms: ED Department Discharge Additional Instructions: Start the lisinopril one tablet once a day follow-up with your primary care provider in the next 7-10 days for reevaluation, call or return to the emergency department worsening of symptoms - My Orders Last 24 Hours: My Active Orders 11/11/16 20:42 Cardiac Monitoring [RC] .As Directed 11/11/16 20:44 EKG Documentation Completion [RC] ASDIRECTED EKG 12 Lead [EK] Stat - Assessment/Plan Last 24 Hours: My Active Orders 11/11/16 20:42 Cardiac Monitoring [RC] .As Directed 11/11/16 20:44 EKG Documentation Completion [RC] ASDIRECTED EKG 12 Lead [EK] Stat Plan: Assessment Acuity = acute Site and laterality = hypertensive urgency complicated patient with known hypertension, coronary artery disease on chronic anticoagulation for paroxysmal atrial fibrillation Etiology = unclear etiology Manifestations = none Location of injury = Home Lab values = CBC, CMP unremarkable INR 2.26 Plan I did review lab work and EKG results with him his blood pressure did come down 10 mg lisinopril prescription written for his follow-up with his primary care provider for reevaluation of blood pressure Patient was in agreement with the plan all questions were answered, they were instructed to return to the emergency department or call for worsening symptoms. This note was dictated using [email or web address] voice recognition software please call with any questions.
[2016-11-11] MEDS ORDERED: Lisinopril 10 MG Tab PO ONE (22:05)
[2016-11-11 23:21] VITALS: BP 144/87
== END 2016-11-11 23:27 | disposition home or self-care (01) ==
LOC: JP.ED 19:07
DX: I16.0 Hypertensive urgency (principal); I25.10 Atherosclerotic heart disease of native coronary artery without angina pectoris; I25.2 Old myocardial infarction; E78.00 Pure hypercholesterolemia, unspecified; M19.90 Unspecified osteoarthritis, unspecified site; Z85.820 Personal history of malignant melanoma of skin; Z96.659 Presence of unspecified artificial knee joint; Z95.1 Presence of aortocoronary bypass graft; Z98.890 Other specified postprocedural states; Z79.82 Long term (current) use of aspirin; Z79.01 Long term (current) use of anticoagulants; Z79.899 Other long term (current) drug therapy; Z88.8 Allergy status to other drugs, medicaments and biological substances
CPT/HCPCS: 36415; 80053; 82553; 84484; 85025; 85610; 93005; 99283; A9270; 93010

== ENCOUNTER 2025-02-02 14:27 | Emergency (ER) | payer MEDICARE, BC ==
[2025-02-02 16:03] LABS: BASOPHILS ABSOLUTE AUTO 0.04 K/uL (0.00-0.10); BASOPHILS PERCENT AUTO 0.5 % (0.1-1.3); EOSINOPHILS ABSOLUTE AUTO 0.16 K/uL (0.00-0.40); EOSINOPHILS PERCENT AUTO 1.9 % (0.0-5.4); IMMATURE GRAN ABSOLUTE AUTO 0.03 K/uL (0.00-0.23); IMMATURE GRAN PERCENT AUTO 0.4 % (0.0-0.7); LYMPHOCYTES ABSOLUTE AUTO 1.83 K/uL (0.8-3.3); LYMPHOCYTES PERCENT AUTO 22.3 % (11.4-47.7); MONOCYTES ABSOLUTE AUTO 0.82 K/uL (0.20-0.90); MONOCYTES PERCENT AUTO 10.0 % (3.3-12.6); NEUTROPHILS ABSOLUTE AUTO 5.34 K/uL (1.0-7.6); NEUTROPHILS PERCENT AUTO 64.9 % (40.0-78.1); PLATELET COUNT,PLT 183 K/uL (130-375); RED BLOOD CELL COUNT 4.12 M/uL (4.14-5.76); WHITE BLOOD CELL COUNT,WBC 8.2 K/uL (3.2-11.0)
[2025-02-02 16:24] LABS: INR 1.0
[2025-02-02] MEDS: Metoprolol Tartrate 5 MG/5 ML SDV IVPUSH ONE (16:26)
[2025-02-02 16:38] LABS: A/G RATIO 1.2 (1.2-2.2); ALANINE AMINOTRANSFERASE,ALT 27 U/L (12-78); ASPARTATE AMNIOTRANSFERASE,AST 20 U/L (15-37); BILIRUBIN TOTAL 0.4 mg/dL (0.2-1.0); BLOOD UREA NITROGEN,BUN 17 mg/dL (7-18); CARBON DIOXIDE,CO2 31 mmol/L (21-32); CHLORIDE,CL 103 mmol/L (100-108); CREATININE 1.0 mg/dL (0.8-1.3); EST CRCL DRUG DOSING (CG) 62.75 mL/min; ESTIMATED GFR 76 mL/min (>60); GLUCOSE RANDOM 121 mg/dL (74-106); POTASSIUM,K 4.5 mmol/L (3.6-5.2); PRO B-TYPE NATRIUR PEPT,BNPPRO 780 pg/mL (5-450); PROTEIN TOTAL,TP 6.2 g/dL (6.4-8.2); SODIUM,NA 139 mmol/L (140-148); TROPONIN I HIGH SENSITIVITY 22.9 pg/mL (<=60.3); TSH ULTRASENSITIVE 1.091 uIU/mL (0.358-3.740)
[2025-02-02 17:30] VITALS: PULSE 113
[2025-02-02] MEDS: Amiodarone 150 MG/3 ML SDV IVPUSH ONE ×2 (17:45→18:20)
[2025-02-02 18:11] VITALS: BP 104/71
== END 2025-02-02 18:19 ==
LOC: JP.ED 14:27
DX: I48.19 Other persistent atrial fibrillation (principal); E86.0 Dehydration; Z88.8 Allergy status to other drugs, medicaments and biological substances; Z79.899 Other long term (current) drug therapy
CPT/HCPCS: 36415; 71045; 80053; 83605; 83735; 83880; 84443; 84484; 85025; 85610; 93005; 96361; 96374; 96375; 99285; A9270; J0282; J0616; J7030